=== PATIENT | female | born 1985 | race Caucasian/White ===

== ENCOUNTER 2016-11-13 10:31 | Emergency (ER) | payer OTHER ==
[~2016-11-13] VITALS: Ht 165.1 cm; Wt 101.3 kg
[~2016-11-13 10:31] MED LIST: ALKA-SELTZER P1 EA12 PO; CIPRO500 MG PO; LEVAQUIN500 MG PO; MOTRIN600 MG PO; MOTRIN800 MG PO; NEXIUM20 MG PO; NORCO 5/3251 TABLET PO; NORCO 7.5/321 TABLET PO; PERCOCET 5/31 TABLET PO; Robitussin, Organidi PO; Vibramycin, Doryx PO; Z-PACK; ZANTAC150 MG PO; ZITHROMAX250 MG PO; Zithromax PO; [UNRECOGNIZED DRUG - SUPPLY] VG
[2016-11-13 11:21] LABS: HEMATOCRIT 41.8 % (36.0-46.0); MCH 30.6 PG (29.0-34.0); MCV 90.1 FL (83-99); MEAN PLAT.VOLUME 9.9 uM^3 (9.5-12.4); PLATELET COUNT 332 K/uL (156-360); RBC DIS.WIDTH-SD 45.7 % (39-53); RED BLOOD COUNT 4.64 M/uL (3.80-5.20); WHITE BLOOD COUNT 6.9 K/uL (4.1-10.2)
[2016-11-13 11:48] LABS: CHLORIDE 107 mEq/L (99-109); POTASSIUM 4.6 mEq/L (3.7-5.4); SODIUM 140 mEq/L (136-147)
[2016-11-13 11:50] LABS: GLUCOSE 98 mg/dL (70-99)
[2016-11-13 11:51] LABS: ANION GAP 10 MEQ/L (2-14)
[2016-11-13 11:52] LABS: TOTAL BILIRUBIN 0.5 mg/dL (0.0-1.0)
[2016-11-13 11:54] LABS: ALKALINE PHOSPHATASE 60 IU/L (3-129); GFR ESTIMATE (CALCULATED) > 59 mL/min/
[2016-11-13 11:55] LABS: UREA NITROGEN (BUN) 11 mg/dL (9-23)
[2016-11-13 12:03] LABS: QUANTITATIVE HCG < 4.0 MIU/ML
[2016-11-13 13:00] LABS: ADD MIUA? NO; BILIRUBIN NEGATIVE; BLOOD NEGATIVE; COLOR YELLOW ((YELLOW)); GLUCOSE (STRIP) NEGATIVE; KETONES NEGATIVE; LEUKOCYTES NEGATIVE; NITRITE NEGATIVE; PROTEIN (STRIP) NEGATIVE; SPECIFIC GRAVITY 1.011 (1.000-1.030); UCUL ADDED? NO; UROBILINOGEN 0.2 MG/DL (0.2-1.0)
[2016-11-13] MEDS ORDERED: VIBRAMYCIN100 MG PO (16:41)
[2016-11-13] MEDS ORDERED: FLAGYL500 MG PO (16:41)
[2016-11-13 16:55] VITALS: BP 128/77
[2016-11-14 13:16] LABS: CHLAMYDIA TRACHOMATIS NEGATIVE; NEISSERIA GONORRHOEAE NEGATIVE
== END 2016-11-13 16:58 | disposition home or self-care (01) ==
LOC: EME 10:31
PROVIDERS: Physician Assistant Medical
DX: N72 Inflammatory disease of cervix uteri (principal); J45.909 Unspecified asthma, uncomplicated; Z86.718 Personal history of other venous thrombosis and embolism; F17.200 Nicotine dependence, unspecified, uncomplicated
CPT/HCPCS: 76856; 80053; 81003; 84702; 85027; 87210; 87491; 87591; 99281; 99284; J0696